=== PATIENT | male | born 1980 | race Caucasian/White ===

== ENCOUNTER 2019-01-27 20:45 | Emergency (ER) | payer OTHER ==
[~2019-01-27] VITALS: Ht 177.8 cm; Wt 140.6 kg
[2019-01-27] MEDS ORDERED: NORVASC10 MG PO (21:45)
[2019-01-27] MEDS ORDERED: CLONAZEPAM 0.50.5 M1 PO (21:46)
[2019-01-27] MEDS ORDERED: PAXIL10 MG PO (21:47)
[2019-01-27 22:07] LABS: ABSOLUTE NEUTROPHILS 7.8 thou/uL (1.4-8.2); BASOPHILS 0.8 % (0.0-2.0); EOSINOPHILS 1.5 % (0.0-3.0); HEMATOCRIT 44.4 % (42.0-52.0); HEMOGLOBIN 15.6 gm/dL (14.0-18.0); MCH 30.3 pg (26.0-34.0); MCHC 35.1 g/dL (28.0-37.0); MCV 86.2 fL (80.0-100.0); MONOCYTES 6.8 % (1.0-8.0); PLATELET COUNT 238 thou/uL (150-400); POLYS 73.9 % (36.0-66.0); RBC 5.15 mil/uL (4.50-6.00); RDW 14.1 % (10.5-14.5); WBC 10.5 thou/uL (4.0-11.0)
[2019-01-27 22:19] LABS: ANION GAP 10 mmol/L (7-16); BUN 16 mg/dL (7-18); CALCIUM 8.6 mg/dL (8.5-10.1); CHLORIDE 102 mmol/L (98-107); CO2 27 mmol/L (21-32); CREATININE 1.3 mg/dL (0.7-1.3); GLUCOSE 132 mg/dL (74-106); POTASSIUM 3.6 mmol/L (3.5-5.1); SODIUM 139 mmol/L (136-145)
[2019-01-27 22:29] LABS: TROPONIN-I <0.06 ng/mL (<0.06)
[2019-01-28 00:25] LABS: URINE BILIRUBIN NEGATIVE (Negative); URINE BLOOD 1+ (Negative); URINE CLARITY CLEAR; URINE COLOR YELLOW; URINE GLUCOSE-RANDOM* NEGATIVE (Negative); URINE KETONES NEGATIVE (Negative); URINE LEUKOCYTES-REFLEX NEGATIVE (Negative); URINE NITRITE-REFLEX NEGATIVE (Negative); URINE PROTEIN (DIPSTICK) NEGATIVE (Negative); URINE SPECIFIC GRAVITY 1.015 (1.005-1.035); URINE UROBILINOGEN 0.2 E.U./dl (0.2-1.0)
[2019-01-28 00:35] LABS: BACTERIA-REFLEX 1-9 Few /HPF (None Seen); CASTS None Seen /LPF (None Seen); CRYSTALS None Seen /LPF (None Seen); MUCUS 0-3 Light strn/LPF (None Seen); SQUAMOUS 0-3 Few /LPF (0-3); URINE RBC 3-10 Few /HPF (0-2); URINE WBC-REFLEX 0-5 Rare /HPF (0-5)
[2019-01-28] MEDS ORDERED: LEVAQUIN 500 M500 M2 PO (01:02)
[2019-01-28 01:13] VITALS: BP 174/96
--- NOTE | 2019-01-28 08:37 | EKG ---
[address] [place] [address] ELECTROCARDIOGRAM REPORT Name: NEW CONNOLLY Room #: [facility] Fuad#: [id number] Admission: 01/27/19 Attend Phys: Discharge: 01/28/19 Date of : 76 Report #: [id number] THIS REPORT FOR: //name// [facility] ED Test Date: 2019-01-27 Test Time: 20:52:47 Pat Name: NEW CONNOLLY Department: Room: Gender: Wheel [employer] Operator: LUCIANO : 1980 Requested By: Cesar Christensen Order Number: [id number] MD: Paco Harrison Measurements Intervals [place] Rate: 91 P: 52 DC: 178 QRS: 38 QRSD: 102 T: 56 QT: 363 QTc: 447 Interpretive Statements Sinus rhythm Early repolarization No previous ECG available for comparison Electronically Signed On 01-28-2019 8:37:25 CDT by Paco Harrison [email or web address] <ELECTRONICALLY SIGNED> By: Paco Harrison MD, [facility] 01/28/19 0837 51 51 Paco Harrison MD, FACC /EPI
== END 2019-01-28 01:15 | disposition home or self-care (01) ==
LOC: ER 20:45
PROVIDERS: Emergency Medicine
DX: N45.1 Epididymitis (principal); R07.9 Chest pain, unspecified; R51 Headache; I10 Essential (primary) hypertension; Z90.49 Acquired absence of other specified parts of digestive tract

== ENCOUNTER 2019-03-05 08:59 | Emergency (ER) | payer OTHER ==
[~2019-03-05] VITALS: Ht 177.8 cm; Wt 140.6 kg
[~2019-03-05 08:59] MED LIST: CLONAZEPAM 0.50.5 M1 PO; LEVAQUIN 500 M500 M2 PO; NORVASC10 MG PO; PAXIL10 MG PO
[2019-03-05 09:24] LABS: ABSOLUTE NEUTROPHILS 7.8 thou/uL (1.4-8.2); BASOPHILS 0.4 % (0.0-2.0); EOSINOPHILS 0.4 % (0.0-3.0); HEMATOCRIT 44.1 % (42.0-52.0); HEMOGLOBIN 15.3 gm/dL (14.0-18.0); LYMPHOCYTES 12.2 % (24.0-44.0); MCH 29.8 pg (26.0-34.0); MCHC 34.6 g/dL (28.0-37.0); PLATELET COUNT 238 thou/uL (150-400); RBC 5.13 mil/uL (4.50-6.00); RDW 13.8 % (10.5-14.5); WBC 9.4 thou/uL (4.0-11.0)
[2019-03-05 09:33] LABS: CALCIUM 9.1 mg/dL (8.5-10.1); CREATININE 0.9 mg/dL (0.7-1.3); POTASSIUM 3.3 mmol/L (3.5-5.1)
[2019-03-05 09:40] LABS: ALBUMIN 4.1 g/dL (3.4-5.0); TOTAL BILIRUBIN 0.7 mg/dL (<0.1-1.0); TOTAL PROTEIN 7.9 g/dL (6.4-8.2)
[2019-03-05 10:07] LABS: URINE BILIRUBIN NEGATIVE (Negative); URINE BLOOD TRACE (Negative); URINE CLARITY CLEAR; URINE COLOR YELLOW; URINE GLUCOSE-RANDOM* NEGATIVE (Negative); URINE KETONES NEGATIVE (Negative); URINE LEUKOCYTES-REFLEX NEGATIVE (Negative); URINE NITRITE-REFLEX NEGATIVE (Negative); URINE PROTEIN (DIPSTICK) 2+ (Negative); URINE SPECIFIC GRAVITY 1.025 (1.005-1.035)
[2019-03-05 10:17] LABS: MUCUS >6 Heavy strn/LPF (None Seen); SQUAMOUS 0-3 Few /LPF (0-3)
[2019-03-05 10:19] LABS: AMORPHOUS PHOSPHATES Moderate /LPF (None Seen); CASTS None Seen /LPF (None Seen); URINE RBC 0-2 Rare /HPF (0-2); URINE WBC-REFLEX 0-5 Rare /HPF (0-5)
[2019-03-05] MEDS ORDERED: ONDANSETRON HCL4 M2 PO (10:47)
[2019-03-05 11:16] VITALS: BP 145/87
== END 2019-03-05 11:17 | disposition home or self-care (01) ==
LOC: ER 08:59
PROVIDERS: Emergency Medicine
DX: R11.2 Nausea with vomiting, unspecified (principal); R19.7 Diarrhea, unspecified; R74.0 Nonspecific elevation of levels of transaminase and lactic acid dehydrogenase [LDH]; I10 Essential (primary) hypertension; Z90.49 Acquired absence of other specified parts of digestive tract; Z86.018 Personal history of other benign neoplasm